=== PATIENT | male | born 1990 ===

== ENCOUNTER 2016-12-17 11:05 | Emergency (ER) | payer OTHER ==
[~2016-12-17] VITALS: Ht 157.5 cm; Wt 66.0 kg
[2016-12-17 11:17] VITALS: Ht 157.5 cm; Wt 66.0 kg
--- NOTE | 2016-12-17 12:57 | ERD ---
ER Documentation Chief Complaint Date/Time DATE: 12/17/16 TIME: 12:55 Chief Complaint Patient states he wants a medication refill HPI Patient is a 26-year-old male who said that he has fibromyalgia and chronic pain who says "I am trying to get into a detox program". He said that he would like referrals. He said that recently however he ran out of medications and wants refills for his oxycodone and Xanax. He said that he is going to detox for alcohol but that he does not want to try to get off the pills that he is on at this time. Upon review of old medical records this is the patient's first visit to the emergency department. ROS All systems reviewed and are negative except as per history of present illness. Allergies Allergies: Coded Allergies: No Known Allergy (Unverified , 12/17/16) PMhx/Soc Fibromyalgia and chronic pain FmHx Family History: No diabetes Physical Exam Vitals Vital Signs Date Time Temp Pulse Resp B/P Pulse Ox O2 Delivery O2 Flow Rate FiO2 12/17/16 11:17 98.3 83 20 154/66 98 Physical Exam Const: No acute distress Head: Atraumatic Eyes: Normal Conjunctiva ENT: Normal External Ears, Nose and Mouth. Neck: Full range of motion..~ No meningismus. Resp: Clear to auscultation bilaterally Cardio: Regular rate and rhythm, no murmurs Abd: Soft, non tender, non distended. Normal bowel sounds Skin: No petechiae or rashes Back: No midline or flank tenderness Ext: No cyanosis, or edema Neur: Awake and alert Psych: Normal Mood and Affect Procedures/MDM Patient is a 26-year-old male who presents with acute on chronic pain. The patient is requesting oxycodone and Xanax. I told him that we do not refill chronic pain medication or benzodiazepine medications and he became angry and said "you are wasting my time then just give me my referrals and I will get out of here". The patient has no obvious significant life-threatening etiology at this time of his pain and it seems like this is an exacerbation of his chronic pain. He would not tell me who his primary doctor or pain management doctors are. I do not believe the patient requires further workup or admission the hospital this time. I do believe there is an element of drug-seeking behavior here and I would not give him narcotic or benzodiazepine medications in the future. The patient can return for any life-threatening etiology. Departure Diagnosis: Primary Impression: Chronic pain Chronic pain type: other chronic pain Qualified Code: G89.29 - Other chronic pain Additional Impression: Encounter for medication refill Condition: Fair Patient Instructions: Chronic Pain Referrals[facility] Additional Instructions: Call your primary care doctor TOMORROW for an appointment during the next 1-2 days.See the doctor sooner or return here if your condition worsens before your appointment time. NICANOR IZQUIERDO MD Dec 17, 2016 12:57
== END 2016-12-17 12:36 | disposition home or self-care (01) ==
LOC: E/R 11:05
DX: G89.29 Other chronic pain (principal)
CPT/HCPCS: 99281